=== PATIENT | female | born 1940 ===

== ENCOUNTER 2017-03-07 01:04 | Day surgery (SDC) | payer OTHER ==
[~2017-03-07 01:04] MED LIST: ALPR.25 PO; ASPI81EC; DEXA4 PO; DIPATR PO; ESCI10 PO; HYDACE5 PO; IBUP800; LEVSOD100; LISHYD2012; LISHYD2025 PO; OMEP20ER PO; ONDA8 PO; OXYC5 PO; Synthroid112 MCG PO
[2017-03-07] MEDS ORDERED: IBUP400 PO (12:21)
[2017-03-07] MEDS ORDERED: ACET325 PO (12:23)
[2017-03-07 12:39] LABS: BASOPHILS ABSOLUTE AUTO 0.06 K/mm3 (0.00-0.23); BASOPHILS PERCENT AUTO 1 % (0-2); EOSINOPHILS ABSOLUTE AUTO 0.14 K/mm3 (0.00-0.68); EOSINOPHILS PERCENT AUTO 2 % (0-6); Hematocrit 48.2 % (33.0-51.0); Hemoglobin 15.7 g/dL (11.5-16.0); IMMATURE GRAN ABSOLUTE AUTO 0.01 K/mm3 (0.00-0.10); IMMATURE GRAN PERCENT AUTO 0 % (0-1); LYMPHOCYTES ABSOLUTE AUTO 1.91 K/mm3 (0.84-5.20); LYMPHOCYTES PERCENT AUTO 32 % (21-46); MONOCYTES ABSOLUTE AUTO 0.45 K/mm3 (0.16-1.47); MONOCYTES PERCENT AUTO 8 % (4-13); Mean Corpuscular HGB 30.1 pg (26.0-34.0); Mean Corpuscular HGB Conc 32.6 g/dL (31.5-36.5); Mean Corpuscular Volume 92 fL (80-100); Mean Platelet Volume 10.8 fL (9.1-12.4); NEUTROPHILS ABSOLUTE AUTO 3.38 K/mm3 (1.96-9.15); NEUTROPHILS PERCENT AUTO 57 % (41-73); Platelet Count 249 K/mm3 (150-400); RDW Coefficient Variation 13.1 % (11.7-14.2); RDW Standard Deviation 44.4 fL (35.1-46.3); Red Blood Cell Count 5.22 M/mm3 (3.80-5.20); White Blood Cell Count 5.95 K/mm3 (4.00-11.30)
[2017-03-07 12:58] LABS: Alanine Aminotransfer (ALT/SGP 48 U/L (12-78); Albumin, Blood 3.3 g/dL (3.4-5.0); Albumin/Globulin Ratio 0.8 (0.8-1.8); Alk Phos 81 U/L (50-136); Anion Gap 6 mmol/L (6-16); Aspartate Aminotrans (AST/SGOT 35 U/L (12-37); Bilirubin, Total 0.4 mg/dL (0.1-1.0); Blood Urea Nitrogen 13 mg/dL (8-24); Bun/Creatinine Ratio 14.5 (12.0-20.0); CO2, Blood 28 mmol/L (21-32); Calcium, Blood 9.2 mg/dL (8.5-10.1); Chloride, Blood 107 mmol/L (98-108); Globulin, Blood 4.2 g/dL (2.2-4.0); Glomerular Filtration Rate >60 (60-); Glucose, Blood 141 mg/dL (70-99); Sodium, Blood 141 mmol/L (136-145); Total Protein, Blood 7.5 g/dL (6.4-8.2)
== END 2017-03-07 12:20 | disposition home or self-care (01) ==
LOC: ATC 01:04
PROVIDERS: Internal Medicine Hematology & Oncology
DX: C50.812 Malignant neoplasm of overlapping sites of left female breast (principal); C78.01 Secondary malignant neoplasm of right lung; C78.02 Secondary malignant neoplasm of left lung; C77.3 Secondary and unspecified malignant neoplasm of axilla and upper limb lymph nodes; Z45.2 Encounter for adjustment and management of vascular access device
CPT/HCPCS: 36591; 80053; 85025; J1642

== ENCOUNTER 2018-05-17 21:07 | Emergency (ER) | payer OTHER ==
[~2018-05-17] VITALS: Ht 170.2 cm; Wt 95.7 kg
[~2018-05-17 21:07] MED LIST changes: +ACET325 PO; +IBUP400 PO
[2018-05-18] MEDS ORDERED: Cephalexin500 M1 PO (01:20)
== END 2018-05-18 01:52 | disposition home or self-care (01) ==
LOC: ER 21:07
DX: L03.116 Cellulitis of left lower limb (principal); Z88.8 Allergy status to other drugs, medicaments and biological substances; Z79.899 Other long term (current) drug therapy; I10 Essential (primary) hypertension; E03.9 Hypothyroidism, unspecified; Z85.3 Personal history of malignant neoplasm of breast; F17.210 Nicotine dependence, cigarettes, uncomplicated
CPT/HCPCS: 96372; 99283-25; A9270-GY; J1885

== ENCOUNTER 2021-04-19 05:54 | Emergency (ER) | payer OTHER ==
[~2021-04-19] VITALS: Ht 170.2 cm; Wt 90.7 kg
[~2021-04-19 05:54] MED LIST changes: +Cephalexin500 M1 PO
[2021-04-19 07:03] LABS: BASOPHILS ABSOLUTE AUTO 0.05 K/mm3 (0.00-0.23); BASOPHILS PERCENT AUTO 1 % (0-2); EOSINOPHILS ABSOLUTE AUTO 0.07 K/mm3 (0.00-0.68); EOSINOPHILS PERCENT AUTO 1 % (0-6); Hemoglobin 15.5 g/dL (11.5-16.0); IMMATURE GRAN ABSOLUTE AUTO 0.02 K/mm3 (0.00-0.10); IMMATURE GRAN PERCENT AUTO 0 % (0-1); LYMPHOCYTES ABSOLUTE AUTO 1.53 K/mm3 (0.84-5.20); LYMPHOCYTES PERCENT AUTO 19 % (21-46); MONOCYTES ABSOLUTE AUTO 0.53 K/mm3 (0.16-1.47); MONOCYTES PERCENT AUTO 7 % (4-13); Mean Corpuscular Volume 91 fL (80-100); NEUTROPHILS PERCENT AUTO 73 % (41-73); Platelet Count 261 K/mm3 (150-400); RDW Coefficient Variation 12.9 % (11.7-14.2); RDW Standard Deviation 43.1 fL (35.1-46.3); Red Blood Cell Count 5.16 M/mm3 (3.80-5.20)
[2021-04-19 07:18] LABS: Alanine Aminotransfer (ALT/SGP 20 U/L (12-78); Albumin, Blood 3.5 g/dL (3.4-5.0); Albumin/Globulin Ratio 0.9 (0.8-1.8); Alk Phos 75 U/L (50-136); Anion Gap 8 mmol/L (6-16); Aspartate Aminotrans (AST/SGOT 19 U/L (12-37); Bilirubin, Total 0.4 mg/dL (0.1-1.0); Blood Urea Nitrogen 16 mg/dL (8-24); Bun/Creatinine Ratio 19.7 (12.0-20.0); CO2, Blood 26 mmol/L (21-32); Calcium, Blood 9.5 mg/dL (8.5-10.1); Chloride, Blood 107 mmol/L (98-108); Creatinine, Blood 0.81 mg/dL (0.40-1.00); Globulin, Blood 4.1 g/dL (2.2-4.0); Glomerular Filtration Rate >60 (60-); Glucose, Blood 136 mg/dL (70-99); Potassium, Blood 3.6 mmol/L (3.5-5.5); Sodium, Blood 141 mmol/L (136-145); Total Protein, Blood 7.6 g/dL (6.4-8.2)
[2021-04-19 07:33] LABS: Source, Urine Clean Catch
[2021-04-19 07:44] LABS: Appearance, Urine Clear (Clear); Bilirubin, Urine Neg (Neg); Blood, Urine Neg (Neg); Color, Urine Yellow (P-Yellow); Glucose Qualitative, Urine Neg (Neg); Ketones, Urine 1+ (Neg); Leukocyte Esterase, Urine 2+ (Neg); Nitrite, Urine Neg (Neg); Protein, Urine Neg (Neg); Specific Gravity, Urine 1.015 (1.003-1.022); Urobilinogen, Urine NORM (Normal)
[2021-04-19 07:52] LABS: Bacteria Few /hpf; Red Blood Cells, Urine 0-2 /hpf (0-2); Squamous Epithelial Cells Few /hpf (Few)
[2021-04-19 07:53] LABS: Transitional Epithelial Cells Rare /hpf (0-Rare)
[2021-04-19 07:54] LABS: Mucus Light (0-Heavy)
[2021-04-19] MEDS ORDERED: HYDR1TAB94 PO (09:19)
[2021-04-19] MEDS ORDERED: DOC250 PO (09:19)
--- NOTE | 2021-04-19 11:26 | NUR ---
Palliative care Case Conference: Placed call to pt's son Zay, he was unaware of the severity of pt's pain or other symptoms. He also was not aware of her likely prognosis. Pt did give me permission to speak to him regarding her case. Dr. Dang concerned that pt making a poor choice to forego treatment possibly r/t depression or "giving up". After long discussion with both patient and her son, it became clear as they both report once she makes up her mind, there is no changing it, and she has decided on Hospice Care. Discussion had with pt and her son regarding hospice in home services,and they verbalize a clear understanding as to the function of hospice. Pt verbalized she chooses [facility], states "That's who my sister used and I love them." Pt's son to fly out from [place] in the next couple days. Jenny at [facility] states they can likely admit pt to hospice services in the next 2 days. Comfort care orders signed, faxed to Jenny.
== END 2021-04-19 11:20 | disposition home or self-care (01) ==
LOC: ER 05:54
PROVIDERS: Emergency Medicine
DX: K62.89 Other specified diseases of anus and rectum (principal); I10 Essential (primary) hypertension; E03.9 Hypothyroidism, unspecified; K21.9 Gastro-esophageal reflux disease without esophagitis; Z79.899 Other long term (current) drug therapy
CPT/HCPCS: 36415; 74177; 80053; 81001; 85025; 86850; 86900; 86901; 87086; 96374; 96375; 99284-25; A9270; J2270; J2405; Q9967